=== PATIENT | male | born 1955 | race American Indian/Alaskan Native ===

== ENCOUNTER 2016-04-29 06:29 | Inpatient (IN) | payer BC, MEDICARE ==
--- NOTE | 2016-04-10 10:54 | Anesthesia Consultation ---
Anesthesia Consult and Med Hx Date of service: 04/10/16 - Airway Anesthetic Teeth Evaluation: Chipped ROM Head & Neck: Inadequate Mental/Hyoid Distance: Inadequate Mallampati Class: Class IV Intubation Access Assessment: Possibly Difficult - Pulmonary Exam CTA: Yes - Cardiac Exam Cardiac Exam: RRR - Pre-Operative Health Status ASA Pre-Surgery Classification: ASA4 Proposed Anesthetic Plan: General - Pre-Anesthesia Comment Pre-Anesthesia Comments: Patient appears to be DIFFICULT INTUBATION and may require FOB intubation/videoscope. Patient was seen by director of field sales and was started on Lopressor. Patient instructed to take Lopressor and other BP meds on DOS. Cardiac clearance pending. Patient had h/o PE and was placed on Coumadin which was d/c 2013. Patient is on Aspirin. Supervisor [employer] note in chart recommends to bridge with Lovenox and early ambulation as prevention. Patient with limited exercise tolerance due to chronic back pain. - Pulmonary Hx Smoking: No Hx Asthma: Yes ( A CHILD) SOB: Yes COPD: No Hx Pneumonia: No Hx Sleep Apnea: Yes (7YRS, CPAP) - Cardiovascular System Hx Hypertension: Yes (3-4YRS AGO) Hx Coronary Artery Disease: No Hx Heart Attack/AMI: No Hx Angina: No Hx Percutaneous Transluminal Coronary Angioplasty (PTCA): No Hx Pacemaker: No Hx Internal Defibrillator: No Hx Valvular Heart Disease: No Hx Heart Murmur: No Hx Peripheral Vascular Disease: No - Central Nervous System Hx Neuromuscular Disorder: Yes (spinal stenosis, spondylosis with myelopathy ) Hx Seizures: No CVA: No Hx Back Pain: Yes (chronic pain syndrome) Hx Psychiatric Problems: No - Gastrointestinal Hx Gastroesophageal Reflux Disease: Yes (controlled) - Endocrine Hx Renal Disease: No Hx End Stage Renal Disease: No Hx Non-Insulin Dependent Diabetes: No - Hematic Hx Anemia: No Hx Sickle Cell Disease: No - Other Systems Hx Cancer: No Hx Obesity: Yes (BMI 58) - Additional Comments Anesthesia Medical History Comments: s/p Tonsillectomy 1969' [facility].
[2016-04-10 10:57] LABS: Basophils % (Auto) 0.3 % (0.0-1.8); Eosinophils % (Auto) 0.7 % (0.0-4.3); Hematocrit 45.3 % (35.5-45.6); Hemoglobin 14.7 gm/dl (11.8-15.2); Mean Corpuscular HGB Conc 33 % (32-34); Mean Corpuscular Hemoglobin 29 pg (28-32); Mean Corpuscular Volume 90 fl (84-94); Platelet Count 152 K/mm3 (140-440); Red Blood Count 5.03 M/mm3 (3.65-5.03); Red Cell Distribution Width 14.8 % (13.2-15.2); White Blood Count 11.5 K/mm3 (4.5-11.0)
[2016-04-10 11:19] LABS: Alanine Aminotransferase 33 units/L (7-56); Albumin 3.8 g/dL (3.9-5); Albumin/Globulin Ratio 1.1 %; Alkaline Phosphatase 43 units/L (35-129); Anion Gap 18 mmol/L; BUN/Creatinine Ratio 37.14; Bilirubin,Total 0.3 mg/dL (0.1-1.2); Blood Urea Nitrogen 26 mg/dL (9-20); Calcium 9.7 mg/dL (8.4-10.2); Carbon Dioxide 23 mmol/L (22-30); Chloride 115.1 mmol/L (98-107); Glucose 131 mg/dL (75-100); Potassium 4.5 mmol/L (3.6-5.0); Sodium 152 mmol/L (137-145); Total Protein 7.4 g/dL (6.3-8.2)
[~2016-04-29 06:29] MED LIST: LEVAQUIN 500MG/100ML 500 MG/100 ML BAG IV NR; LOVENOX SUB-Q NR; MORPHINE IV PRN; NORCO PO PRN; PEPCID IV NR; REGLAN IV NR; TRANSDERM-SCOP TD SCH; ZOFRAN IV PRN
[2016-04-29] MEDS ORDERED: NACL BACTERIOSTATIC INFILTRATI ONE (06:30)
[2016-04-29] MEDS: LACTATED RINGERS 1,000 ML IV SCH ×2 (06:50→22:29)
--- NOTE | 2016-04-29 06:56 | Anesthesia Day of Surgery ---
Anesthesia Day of Surgery - Day of Surgery Patient Examined: Yes Patient H&P Reviewed: Yes Patient is NPO: Yes Beta Blockers: Yes Cardiac Clearance: Yes Pulmonary Clearance: Yes
[2016-04-29] MEDS ORDERED: SUBLIMAZE ONE (07:07)
[2016-04-29] MEDS ORDERED: DIPRIVAN 10 MG/ML IV ONE ×2 (07:07→08:37)
[2016-04-29] MEDS ORDERED: ePHEDrine SULFATE ONE (08:10)
[2016-04-29] MEDS ORDERED: ZEMURON IV ONE (08:35)
[2016-04-29] MEDS ORDERED: QUELICIN ONE (08:35)
[2016-04-29] MEDS ORDERED: NACL 0.9% 100 ML ONE (08:41)
[2016-04-29] MEDS ORDERED: NEO SYNEPHRINE ONE (08:41)
[2016-04-29] MEDS ORDERED: XYLOCAINE 1% 20 mL INFILTRATI ONE (08:44)
[2016-04-29] MEDS ORDERED: MARCAINE-EPI 0.5%-1:200,000 INFILTRATI ONE (08:44)
[2016-04-29] MEDS ORDERED: NACL 0.9% IR ONE (08:44)
[2016-04-29] MEDS ORDERED: ZOFRAN ONE (08:54)
[2016-04-29] MEDS ORDERED: NACL 0.9% 1000 ML 1,000 ML ONE ×2 (09:12→12:26)
[2016-04-29] MEDS ORDERED: DILAUDID ONE (09:33)
[2016-04-29] MEDS ORDERED: SUBLIMAZE IV PRN (10:13)
[2016-04-29] MEDS: DILAUDID IV PRN ×2 (10:42→10:54)
[2016-04-29 10:53] LABS: Hematocrit 46.1 % (35.5-45.6); Hemoglobin 14.4 gm/dl (11.8-15.2); Mean Corpuscular HGB Conc 31 % (32-34); Mean Corpuscular Hemoglobin 29 pg (28-32); Mean Corpuscular Volume 91 fl (84-94); Platelet Count 168 K/mm3 (140-440); Red Blood Count 5.05 M/mm3 (3.65-5.03)
--- NOTE | 2016-04-29 10:53 | Admit Criteria Form ---
Admission Criteria Documentation: AMBULATORY SURGERY EXCEPTION CRITERIA Ambulatory Surgery Exception Criteria ( Place 'X' for any and all applicable criteria): Surgery or procedure performed on ambulatory basis may require inpatient stay for[A] ANY ONE of the following(1)(2)(3)(4)(5)(6)(7)(8)(9): [] I. A preoperative situation, condition, or finding that warrants inpatient stay as indicated by ANY ONE of the following: [] a) Inpatient care needed because of severity of a disease or condition rather than the surgery (eg, severe cardiac or respiratory disease, severe infection) (15) (16 ) (17) (18) [] b) Emergent procedure (eg, angioplasty for acute ischemia)(19) [] c) Complex surgical approach or situation as indicated by ANY ONE of the following(3): [] i) Open approach needed instead of usual endoscopic, transcatheter, or other less invasive procedure [] ii) Difficult approach because of previous operation [] iii) Airway monitoring required after open neck procedures(20)(21) [] iv) Large mass requiring unusually extensive dissection [] v) Additional complicating feature requiring inpatient care (eg, drain management)(22(23): [X] d) Major surgery in a pt with high anesthetic risk as indicated by ANY ONE of the following (2)(3)(5)(7)(8): [X] i) ASA risk class III or higher (severe systemic disease impairing function) [D] [] ii) Advanced age (eg, older than 85 years)(14)(24) [] iii) Symptomatic heart failure(25) [] iv) Symptomatic asthma or COPD(8)(21) [] v) Morbid obesity with hemodynamic or respiratory problems(20)( 21)(26)(27) [] vi) Obstructive sleep apnea(20)(21) [] vii) Former premature infants who are younger than 60 weeks [] viii) High risk for severe postoperative abnormalities (eg, severe postoperative hypocalcemia after parathyroidectomy for severe hyperparathyroidism)(27)( 28) [] ix) Unstable angina(25) [] e) Drug-related risk requiring inpatient stay as indicated by ANY ONE of the following(5)(10)(14)(32)(33) [] i) Procedure requires discontinuing drugs or other therapy (eg , antiarrhythmic medication, antiseizure medication), which necessitates inpatient observation or treatment.(18)(31) [] ii) Major surgery and high risk drug use as indicated by ANY ONE of the following: [] 1) Active abuse of cocaine or similar drug [] 2) Monoamine oxidase inhibitor use [] 3) Other drug identified as posing risk [] f) Inadequate outpatient care situation as indicated by ANY ONE of the following(5)(10)(14)(32)(33) [] i) Patient lives remote from medical facility and procedure has urgent complication potential, and temporary nearby residence cannot be arranged [] ii) Patient will have postprocedure incapacitation and inadequate assistance at home, or alternative level of care cannot be arranged. [] iii) Patient will have long general anesthesia or procedure side effect resolution time, and competent person to stay with patient on first postoperative night at home or alternative level of care cannot be arranged. []iv) Other inadequate outpatient situation that cannot be handled by other means [] II. A perioperative event, condition, or finding that warrants inpatient stay as indicated by ANY ONE of the following (1)(2)(3): [] a) Inadequate physiologic recovery: cardiovascular, respiratory, or hemodynamic status not normal or near preoperative baseline(18) [] b) Hemodynamic instability [] c) Patient not alert with near normal or baseline mental status [] d) Temperature not normal or as expected and not appropriate for outpatient treatment of condition [] e) Ambulatory or appropriate activity level status not yet achieved post procedure [E](34)(35)(36) [] f) Operative site not appropriate (eg, unexpected or excessive drainage or bleeding) [] g) Postoperative effects not resolved or adequately managed (eg, significant pain or vomiting not appropriate for outpatient or next level of care)(10)(12) [] h) Complicating features requiring inpatient care as indicated by ANY ONE of the following(37): [] i) Severe complications of procedure (eg, bowel injury, airway compromise, vascular injury,severe hemorrhage) [] ii) Extensive (eg, dissection far beyond usual scope of procedure ) or prolonged (eg, 120 minutes beyond usual) surgery needed requiring inpatient postoperative care [] iii) Conversion to an open or complex procedure that requires inpatient care (eg, open vs laparoscopic cholecystectomy, abdominal vs vaginal hysterectomy)(38) [] iv) Comorbid condition or test result identified during or post procedure that requires inpatient care (7) [] v) Malignant hyperthermia(30) [] vi) Other complicating feature requiring inpatient care(22)(23) Inpatient stay may be needed until ALL of the following are present (1)(2)(3)(4) (5)(6)(10)(14)(33)(40): []a) Physiologic recovery: cardiovascular, respiratory, and hemodynamic status normal or near preoperative baseline []b) Hemodynamic stability []c) Patient alert, with near normal or baseline mental status []d) Temperature appropriate: patient afebrile or temperature appropriate for outpt treatment of condition []e) Activity level appropriate: ambulatory or appropriate activity level post procedure []f) Operative site appropriate as indicated by ALL of the following: []i) Site dry or with expected drainage []ii) Any blood noted is as expected for procedure. []g) Postoperative effects resolved or managed as indicated by ALL of the following: []i) Pain management appropriate for outpatient (or next level of) care(10) []ii) Minimal nausea and vomiting: if present, successfully treated with oral medication(12) []iii) Headache, dizziness, or drowsiness (if present) are mild. []h) Voiding status acceptable as indicated by ANY ONE of the following: []i) Voiding spontaneously []ii) No voiding but instructions given for follow-up in 6 to 8 hours []iii) Urinary catheter in place, and instructions given for follow-up []i) Complicating features requiring inpatient care manageable at a lower level of care(37) []j) Comorbid conditions manageable at a lower level of care(37) The original [email or web address] content created by [email or web address] has been revised. The portions of the content which have been revised are identified through the use of italic text or in bold, and [employer] has neither reviewed nor approved the modified material. All other unmodified content is copyright [email or web address]. Please see references footnoted in the original [email or web address] edition 2016 Admission Criteria Met: Yes
[2016-04-29 10:56] LABS: White Blood Count 21.2 K/mm3 (4.5-11.0)
[2016-04-29 11:09] LABS: Alanine Aminotransferase 105 units/L (7-56); Albumin 3.7 g/dL (3.9-5); Alkaline Phosphatase 47 units/L (35-129); Anion Gap 22 mmol/L; BUN/Creatinine Ratio 18.18; Bilirubin,Total 0.7 mg/dL (0.1-1.2); Blood Urea Nitrogen 20 mg/dL (9-20); Calcium 9.5 mg/dL (8.4-10.2); Carbon Dioxide 21 mmol/L (22-30); Chloride 102.1 mmol/L (98-107); Glucose 188 mg/dL (75-100); Potassium 3.9 mmol/L (3.6-5.0); Sodium 141 mmol/L (137-145); Total Protein 7.3 g/dL (6.3-8.2)
[2016-04-29] MEDS ORDERED: DECADRON ONE (11:22)
[2016-04-29 11:26] LABS: Basophils % (Manual) 0 % (0.0-1.8); Blastocytes % (Manual) 0 %; Eosinophils % (Manual) 0 % (0.0-4.3)
[2016-04-29 11:27] LABS: Diff Status Complete; Platelet Estimate Consistent w Auto
[2016-04-29] MEDS ORDERED: DECADRON IV ONE (12:00)
[2016-04-29] MEDS ORDERED: LACTATED RINGERS 1,000 ML IV SCH (12:00)
[2016-04-29] MEDS ORDERED: VERSED IV ONE (12:27)
--- NOTE | 2016-04-29 12:48 | Post Anesthesia Evaluation ---
- Post Anesthesia Evaluation Patient Participated: Yes (doing well on cpap; HR decreased to baseline) Airway Patent: Yes Stable Respiratory Function: Yes Nausea/Vomiting: No Temp > 96.8F: Yes Pain Manageable: Yes Adequeate Hydration: Yes Anesthesia Complications: No Block Receding Appropriately: Not Applicable Patient on Ventilator: No
[2016-04-29 14:00] LABS: Magnesium 1.9 mg/dL (1.7-2.3); Phosphorous 3.5 mg/dL (2.5-4.5)
[2016-04-30] MEDS: LACTATED RINGERS 1,000 ML IV SCH (08:45)
[2016-04-30 09:36] LABS: Basophils % (Auto) 0.1 % (0.0-1.8); Eosinophils % (Auto) 0.1 % (0.0-4.3); Hematocrit 45.2 % (35.5-45.6); Hemoglobin 14.6 gm/dl (11.8-15.2); Mean Corpuscular HGB Conc 32 % (32-34); Mean Corpuscular Hemoglobin 29 pg (28-32); Mean Corpuscular Volume 90 fl (84-94); Platelet Count 143 K/mm3 (140-440); Red Blood Count 5.01 M/mm3 (3.65-5.03); Red Cell Distribution Width 15.3 % (13.2-15.2); White Blood Count 14.6 K/mm3 (4.5-11.0)
[2016-04-30] MEDS ORDERED: LOVENOX SUB-Q SCH (10:00)
[2016-04-30 10:31] LABS: Alanine Aminotransferase 84 units/L (7-56); Albumin 3.4 g/dL (3.9-5); Albumin/Globulin Ratio 1.1 %; Alkaline Phosphatase 43 units/L (35-129); Anion Gap 20 mmol/L; BUN/Creatinine Ratio 16.25; Bilirubin,Total 0.8 mg/dL (0.1-1.2); Blood Urea Nitrogen 13 mg/dL (9-20); Calcium 9.1 mg/dL (8.4-10.2); Carbon Dioxide 22 mmol/L (22-30); Chloride 103.6 mmol/L (98-107); Glucose 85 mg/dL (75-100); Potassium 4.3 mmol/L (3.6-5.0); Sodium 141 mmol/L (137-145); Total Protein 6.6 g/dL (6.3-8.2)
--- NOTE | 2016-04-30 14:43 | Discharge Summary ---
Providers - Providers Date of Admission: 04/29/16 06:29 Date of discharge: 04/30/16 Attending physician: PROSPER MUSA Hospitalization Reason for admission: post op observation Condition: Stable Disposition: DISCHARGED TO HOME OR SELFCARE Core Measure Documentation - Palliative Care Palliative Care/ Comfort Measures: Not Applicable - Core Measures Any of the following diagnoses?: none Exam - Physical Exam Narrative exam: NAD, ambulating Lungs CTA bl Heart RRR Abd soft, nt/nd. Wounds ok Neuro AAox3 - Constitutional Vitals: Temp Pulse Resp BP Pulse Ox 98.4 F 85 20 131/82 97 04/30/16 12:00 04/30/16 12:00 04/30/16 12:00 04/30/16 12:00 04/30/16 08:50 Plan Activity: advance as tolerated Diet: other (bariatric stage 1) Special Instructions: no heavy lifting Follow up with: HUGO BLANCO [Other] - 7 Days
[2016-04-30 15:51] VITALS: BP 131/79
== END 2016-04-30 18:25 | disposition home or self-care (01) | DRG 327 ==
LOC: 3A 06:29 → 2B-SURG 10:28
PROVIDERS: ADMIT Specialist; ATTEND Specialist
PROC: 0DB64Z3 Excision of Stomach, Percutaneous Endoscopic Approach, Vertical (ICD-10-PCS; principal; 2016-04-29)
PROC: 0BQS4ZZ (ICD-10-PCS; 2016-04-29)
PROC: 0BQR4ZZ (ICD-10-PCS; 2016-04-29)
DX: K44.9 Diaphragmatic hernia without obstruction or gangrene (principal); G95.89 Other specified diseases of spinal cord; Z68.43 Body mass index [BMI] 50.0-59.9, adult; E66.01 Morbid (severe) obesity due to excess calories; J45.909 Unspecified asthma, uncomplicated; G47.33 Obstructive sleep apnea (adult) (pediatric); I10 Essential (primary) hypertension; G89.4 Chronic pain syndrome; K21.9 Gastro-esophageal reflux disease without esophagitis; Z80.9 Family history of malignant neoplasm, unspecified; Z71.3 Dietary counseling and surveillance; Z86.711 Personal history of pulmonary embolism
CPT/HCPCS: 36415; 80053; 83735; 84100; 85007; 85025; 88307; 94660; C9250; J0330; J1100; J1170; J1650; J1956; J2250; J2270; J2370; J2405; J2704; J2765; J3010; J7030; J7120